=== PATIENT | female | born 1985 | race Caucasian/White ===

== ENCOUNTER 2018-02-05 23:39 | Emergency (ER) | payer SELFPAY ==
[2018-02-06] MEDS ORDERED: DEXAMETHASONE 10 MG/ML VIAL ONE (00:33)
[2018-02-06] MEDS ORDERED: FAMOTIDINE 20 MG/2 ML VIAL IV ONE (00:33)
[2018-02-06] MEDS ORDERED: DIPHENHYDRAMINE 50 MG/ML VIAL ONE (00:37)
--- NOTE | 2018-02-06 01:13 | ER ---
Nurse's Notes [facility] Name: Chandrika Gardner Age: 32 yrs Sex: Female : 1985 Arrival Date: 02/05/2018 Time: 23:41 Bed 19 Private MD: Diagnosis: Urticaria Presentation: 02/06 00:04 Presenting complaint: Patient states: I got bit by something a couple hours ago and tl2 then I started itching everywhere. Large bite noted to left flank. Hives noted on wrists, abdomen, and chest. Redness noted on face. Pt denies abdominal pain or shortness of breath. Transition of care: patient was not received from another setting of care. Onset of symptoms was February 05, 2018 at 22:00. Risk Assessment: Do you want to hurt yourself or someone else? Patient reports no desire to harm self or others. Initial Sepsis Screen: Does the patient meet any 2 criteria? No. Patient's initial sepsis screen is negative. Does the patient have a suspected source of infection? No. Patient's initial sepsis screen is negative. Care prior to arrival: None. 00:04 Method Of Arrival: Ambulatory tl2 00:04 Acuity: CANDIDA 4 tl2 Triage Assessment: 00:06 Bite description: bite sustained to left flank is from insect was sustained 1-2 hours tl2 ago. by a mosquito. General: Appears in no apparent distress. uncomfortable, Behavior is cooperative, appropriate for age, anxious. Pain: Denies pain. Neuro: Level of Consciousness is awake, alert, obeys commands, Oriented to person, place, time, situation. Cardiovascular: Denies chest pain. Respiratory: Airway is patent Respiratory effort is even, unlabored, Respiratory pattern is regular, symmetrical, Breath sounds are clear bilaterally. GI: No signs and/or symptoms were reported involving the gastrointestinal system. : No signs and/or symptoms were reported regarding the genitourinary system. Derm: Rash noted that is itchy, urticaria, on wrists, chest, abdomen. Historical: - Allergies: 00:06 No Known Allergies; tl2 - Home Meds: 00:06 None [Active]; tl2 - PMHx: 00:06 None; tl2 - PSHx: 00:06 ; tl2 - Immunization history:: Adult Immunizations up to date. - Social history:: Smoking status: Patient uses tobacco products, denies chronic smoking, but will smoke occasionally. - Ebola Screening: : No symptoms or risks identified at this time. Screenin:08 Abuse screen: Denies threats or abuse. Nutritional screening: No deficits noted. tl2 Tuberculosis screening: No symptoms or risk factors identified. Fall Risk None identified. Assessment: 00:06 General: see triage assessment. tl2 01:07 Reassessment: Patient appears in no apparent distress at this time. Patient and/or tl2 family updated on plan of care and expected duration. Pain level reassessed. Patient is alert, oriented x 3, equal unlabored respirations, skin warm/dry/pink. redness and rash has decreased. Patient states feeling better. 01:19 Reassessment: PT verbalized understanding of discharge instructions, need for follow up tl2 and prescription usage. Vital Signs: 00:06 BP 132 / 91; Pulse 75; Resp 20; Pulse Ox 96% on R/A; Weight 72.12 kg; Height 5 ft. 5 tl2 in. (165.10 cm); Pain 0/10; 01:07 BP 112 / 78; Pulse 73; Resp 18; Pulse Ox 100% on R/A; tl2 00:06 Body Mass Index 26.46 (72.12 kg, 165.10 cm) tl2 ED Course: 02/05 23:41 Patient arrived in ED. am2 0916 00:05 Triage completed. tl2 00:06 Arm band placed on right wrist. tl2 00:08 Patient has correct armband on for positive identification. Placed in gown. Bed in low tl2 position. Call light in reach. Side rails up X 1. Adult w/ patient. 00:18 Tico Bagley NP is PHCP. pm1 00:18 Pacheco Lopez MD is Attending Physician. pm1 00:25 Katheryn Mcduffie RN is Primary Nurse. tl2 00:30 Inserted saline lock: 22 gauge in right wrist, using aseptic technique. tl2 01:19 No provider procedures requiring assistance completed. IV discontinued, intact, tl2 bleeding controlled, No redness/swelling at site. Pressure dressing applied. Administered Medications: 00:40 Drug: Decadron - Dexamethasone 10 mg Route: IVP; Site: right wrist; tl2 01:20 Follow up: Response: No adverse reaction; Marked relief of symptoms tl2 00:41 Drug: Pepcid 20 mg Route: IVP; Site: right wrist; tl2 01:20 Follow up: Response: No adverse reaction; Marked relief of symptoms tl2 00:41 Drug: Benadryl 25 mg Route: IVP; Site: right wrist; tl2 01:20 Follow up: Response: No adverse reaction; Marked relief of symptoms tl2 Outcome: 01:12 Discharge ordered by MD. pm1 01:19 Discharged to home ambulatory, with family. tl2 01:19 Condition: stable 01:19 Discharge instructions given to patient, Instructed on discharge instructions, follow up and referral plans. medication usage, Demonstrated understanding of instructions, follow-up care, medications, Prescriptions given X 3. 01:21 Patient left the ED. tl2 Signatures: Tico Bagley NP RN SURGERY pm1 Katheryn Mcduffie RN RN tl2 Jenny Luo am2
--- NOTE | 2018-02-06 01:13 | EDPHYS ---
Physician Documentation [facility] Name: Chandrika Gardner Age: 32 yrs Sex: Female : 1985 Arrival Date: 02/05/2018 Time: 23:41 Bed 19 Private MD: ED Physician Pacheco Lopez HPI: 02/06 01:08 This 32 yrs old Female presents to ER via Ambulatory with complaints of pm1 Insect Bite, Hives. 01:08 The patient's rash thought to be caused by insect bites. The rash is located on the pm1 body diffusely. The rash can be described as urticarial. Onset: The symptoms/episode began/occurred today. Associated signs and symptoms: Pertinent positives: itching, Pertinent negatives: difficulty breathing, fever, nausea, swelling of lips, swelling of throat, swelling of tongue, vomiting. Severity of symptoms: in the emergency department the symptoms are worse Pain is currently a 0 / 10. Treatment given at home: OTC lotion/cream. The patient has not experienced similar symptoms in the past. The patient has not recently seen a physician. Patient felt possible insect bite on the left flank area and then started having hives to her abdomen, bilateral arms and some redness to her face. No shortness of breath, sore throat, or difficulty swallowing. Historical: - Allergies: 00:06 No Known Allergies; tl2 - Home Meds: 00:06 None [Active]; tl2 - PMHx: 00:06 None; tl2 - PSHx: 00:06 ; tl2 - Immunization history:: Adult Immunizations up to date. - Social history:: Smoking status: Patient uses tobacco products, denies chronic smoking, but will smoke occasionally. - Ebola Screening: : No symptoms or risks identified at this time. ROS: 01:08 Constitutional: Negative for fever, chills, and weight loss, Eyes: Negative for injury, pm1 pain, redness, and discharge, ENT: Negative for injury, pain, and discharge, Neck: Negative for injury, pain, and swelling, Cardiovascular: Negative for chest pain, palpitations, and edema, Respiratory: Negative for shortness of breath, cough, wheezing, and pleuritic chest pain, Abdomen/GI: Negative for abdominal pain, nausea, vomiting, diarrhea, and constipation, Back: Negative for injury and pain, MS/Extremity: Negative for injury and deformity. 01:08 Skin: Positive for rash, of the abdomen, right arm and left arm. 01:08 Neuro: Negative for headache, weakness, numbness, tingling, and seizure. pm1 Exam: 01:08 Constitutional: This is a well developed, well nourished patient who is awake, alert, pm1 and in no acute distress. Head/Face: Normocephalic, atraumatic. Eyes: Pupils equal round and reactive to light, extra-ocular motions intact. Lids and lashes normal. Conjunctiva and sclera are non-icteric and not injected. Cornea within normal limits. Periorbital areas with no swelling, redness, or edema. ENT: Nares patent. No nasal discharge, no septal abnormalities noted. Tympanic membranes are normal and external auditory canals are clear. Oropharynx with no redness, swelling, or masses, exudates, or evidence of obstruction, uvula midline. Mucous membranes moist. Neck: Trachea midline, no thyromegaly or masses palpated, and no cervical lymphadenopathy. Supple, full range of motion without nuchal rigidity, or vertebral point tenderness. No Meningismus. Chest/axilla: Normal chest wall appearance and motion. Nontender with no deformity. No lesions are appreciated. Cardiovascular: Regular rate and rhythm with a normal S1 and S2. No gallops, murmurs, or rubs. Normal PMI, no JVD. No pulse deficits. Respiratory: Lungs have equal breath sounds bilaterally, clear to auscultation and percussion. No rales, rhonchi or wheezes noted. No increased work of breathing, no retractions or nasal flaring. Abdomen/GI: Soft, non-tender, with normal bowel sounds. No distension or tympany. No guarding or rebound. No evidence of tenderness throughout. Back: No spinal tenderness. No costovertebral tenderness. Full range of motion. 01:08 MS/ Extremity: Pulses equal, no cyanosis. Neurovascular intact. Full, normal range of motion. :08 Skin: Appearance: normal except for affected area, consistent with urticaria. 01:08 Neuro: Orientation: is normal, Motor: moves all fours. Vital Signs: 00:06 BP 132 / 91; Pulse 75; Resp 20; Pulse Ox 96% on R/A; Weight 72.12 kg; Height 5 ft. 5 tl2 in. (165.10 cm); Pain 0/10; 01:07 BP 112 / 78; Pulse 73; Resp 18; Pulse Ox 100% on R/A; tl2 00:06 Body Mass Index 26.46 (72.12 kg, 165.10 cm) tl2 MDM: 00:22 Patient medically screened. pm1 01:12 Data reviewed: vital signs. Data interpreted: Pulse oximetry: on room air is 100 %. pm1 Interpretation: normal. Counseling: I had a detailed discussion with the patient and/or guardian regarding: the historical points, exam findings, and any diagnostic results supporting the discharge/admit diagnosis, the need for outpatient follow up, an allergy/claim processing specialist, to return to the emergency department if symptoms worsen or persist or if there are any questions or concerns that arise at home. 02/06 00:22 Order name: IV Saline Lock; Complete Time: 00:25 pm1 Administered Medications: 00:40 Drug: Decadron - Dexamethasone 10 mg Route: IVP; Site: right wrist; tl2 01:20 Follow up: Response: No adverse reaction; Marked relief of symptoms tl2 00:41 Drug: Pepcid 20 mg Route: IVP; Site: right wrist; tl2 01:20 Follow up: Response: No adverse reaction; Marked relief of symptoms tl2 00:41 Drug: Benadryl 25 mg Route: IVP; Site: right wrist; tl2 01:20 Follow up: Response: No adverse reaction; Marked relief of symptoms tl2 Disposition: 02/06/18 01:12 Discharged to Home. Impression: Urticaria. - Condition is Stable. - Discharge Instructions: Insect Bite, Hives. - Prescriptions for Benadryl 25 mg Oral Capsule - take 1 capsule by ORAL route every 6 hours As needed; 30 tablet. Pepcid 20 mg Oral Tablet - take 1 tablet by ORAL route every 12 hours for 10 days; 20 tablet. Medrol (Aamn) 4 mg Oral Tablets, Dose Pack - take 1 tablet by ORAL route as directed - follow package instructions; 1 packet. - Medication Reconciliation Form, Thank You Letter, Antibiotic Education, Prescription Opioid Use form. - Follow up: Emergency Department; When: As needed; Reason: Worsening of condition. Follow up: Private Physician; When: 2 - 3 days; Reason: Recheck today's complaints, Continuance of care, Re-evaluation by your physician. - Problem is new. - Symptoms have improved. Addendum: 02/07/2018 03:02 Co-signature as Attending Physician, Pacheco Lopez MD. g s Signatures: Tico Bagley, CLERICAL PRODUCTION WORKER CLERICAL PRODUCTION WORKER pm1 Katheryn Mcduffie, RN RN tl2 Pacheco Lopez MD MD Corrections: (The following items were deleted from the chart) 02/06 01:21 01:12 02/06/2018 01:12 Discharged to Home. Impression: Urticaria. Condition is Stable. tl2 Forms are Medication Reconciliation Form, Thank You Letter, Antibiotic Education, Prescription Opioid Use. Follow up: Emergency Department; When: As needed; Reason: Worsening of condition. Follow up: Private Physician; When: 2 - 3 days; Reason: Recheck today's complaints, Continuance of care, Re-evaluation by your physician. Problem is new. Symptoms have improved. pm1
== END 2018-02-06 01:21 | disposition home or self-care (01) ==
LOC: ER 23:39
DX: L50.9 Urticaria, unspecified (principal); Z72.0 Tobacco use
CPT/HCPCS: 96374; 96375; 99283; J1100